=== PATIENT | male | born 1930 | race Caucasian/White ===

== ENCOUNTER 2019-01-01 18:42 | Inpatient (IN) | payer MEDICARE, MEDICAID ==
[~2019-01-01] VITALS: Ht 185.4 cm; Wt 68.5 kg
--- NOTE | 2019-01-01 19:27 | NUR ---
PT WAS BIB HIS SON AND DAUGHTER FOR INCREASED AGGITATION AND AGGRESSION TOWARDS THE CAREGIVER AT HOME. PT WAS DX WITH MILD DEMENTIA, BUT TODAY HE LOCKED THE CAREGIVER OUT AND WOULD NOT LET HER IN. PT'S FAMILY CAN NOT CARE FOR THE PT AND BROUGHT HIM IN FOR EVALUATION. 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 PT AMBULATED TO ER 11 WITH A SLOW STEADY GAIT. PT THEN AMBULATED TO THE BATHROOM TO GIVE A URINE SAMPLE. PT WAS PLACED ON THE MONITOR AND CONTINUOUS PULSE OX.
--- NOTE | 2019-01-01 19:29 | NUR ---
DR DANIELS IS AT THE BEDSIDE SPEAKING TO THE PT
--- NOTE | 2019-01-01 19:58 | NUR ---
BLOOD WAS DRAWN AND SENT TO LAB.
[2019-01-01] MEDS ORDERED: IV NS 0.9% 1,000 ML BAG IV ONE (20:00)
[2019-01-01 20:05] LABS: APPEARANCE,URINE Clear (CLEAR); BILIRUBIN,URINE SMALL (NEGATIVE); BLOOD, URINE Negative Ery/uL (NEGATIVE); COLOR,URINE DARK YELLOW (YELLOW); KETONES,URINE Trace (NEGATIVE); LEUKOCYTE ESTERASE ,URINE Negative (NEGATIVE); NITRITE, URINE Negative (NEGATIVE); PH,URINE 5.5 (5.0-8.0); PROTEIN,URINE Negative (NEGATIVE); UGLUCOSE Negative (NEGATIVE); UROBILINOGEN,URINE 0.2 EU/dL (0.2)
--- NOTE | 2019-01-01 20:15 | NUR ---
DR DANIELS IS AT THE BEDSIDE SPEAKING TO THE PT.
[2019-01-01 20:26] LABS: CALCIUM, SERUM 8.9 mg/dL (8.5-10.1); CARBON DIOXIDE 21 mmol/L (21-32); CHLORIDE 104 mmol/L (98-107); CREATININE 1.2 mg/dL (0.6-1.3); GLUCOSE 95 mg/dL (74-106); POTASSIUM 4.2 mmol/L (3.5-5.1); SODIUM SERUM 139 mmol/L (136-145); UREA NITROGEN, BLOOD 23 mg/dL (7-18)
[2019-01-01 20:27] LABS: BACTERIA,URINE None seen /HPF (None Seen); RBC,URINE 0-2 /HPF (0-2); SQUAMOUS EPITHELIAL CELL,UR Few /HPF (None Seen); WBC,URINE 0-2 /HPF (0-3)
--- NOTE | 2019-01-01 20:28 | NUR ---
PT TAKEN TO CT
[2019-01-01 20:32] LABS: ALANINE AMINOTRANSFERASE 22 U/L (12-78); ALBUMIN 4.3 g/dL (3.4-5.0); ALKALINE PHOSPHATASE 57 U/L (46-116); ASPARTATE AMINOTRANSFERASE 23 U/L (15-37); BILIRUBIN,DIRECT 0.2 mg/dL (0.0-0.2); BILIRUBIN,TOTAL 1.2 mg/dL (0.2-1.0); LIPASE 488 U/L (73-393); TOTAL PROTEIN, SERUM 7.4 g/dL (6.4-8.2)
--- NOTE | 2019-01-01 20:33 | NUR ---
GPS BED 213B GIVEN
--- NOTE | 2019-01-01 20:37 | NUR ---
PT RETURNED FROM CT.
[2019-01-01 20:42] LABS: BASOPHILS % (AUTO) 0.3 % (0.0-2.0); EOSINOPHILS % (AUTO) 0.9 % (0.0-6.0); HEMATOCRIT 41 % (39-51); HEMOGLOBIN 14.3 g/dL (13.5-17.5); LYMPHOCYTES # (AUTO) 1.8 /CMM (0.8-4.8); LYMPHOCYTES % (AUTO) 21.1 % (20.0-44.0); MEAN CORPUSCULAR HGB CONC 35 g/dl (31.0-36.0); MEAN CORPUSCULAR VOLUME 100 fL (80-96); MONOCYTES # (AUTO) 0.9 /CMM (0.1-1.30); MONOCYTES % (AUTO) 10.3 % (2.0-12.0); NEUTROPHILS # (AUTO) 5.8 /CMM (1.8-8.9); NEUTROPHILS % (AUTO) 67.4 % (43.0-81.0); PLATELET COUNT (AUTO) 183 /CMM (150-450); RED BLOOD CELL COUNT(AUTO) 4.05 MIL/uL (4.5-6.0); WHITE BLOOD COUNT (AUTO) 8.6 K/uL (4.3-11.0)
--- NOTE | 2019-01-01 21:12 | NUR ---
PT AMBULATED TO THE BATHROOM WITH ASSISTANCE.
--- NOTE | 2019-01-01 21:16 | NUR ---
REPORT GIVE TO KRISTIAN NUÑEZ, ON 3080 HOLD FOR GD
--- NOTE | 2019-01-01 21:24 | NUR ---
IV removed. Catheter intact and site benign. Pressure and 4x4 applied to site. No bleeding noted.
[2019-01-01 21:30] VITALS: BP 142/79
--- NOTE | 2019-01-01 21:30 | NUR ---
GPS ADMISSION NOTE, RECEIVED PATIENT FROM [facility]. PATIENT ADMITTED ON A 5150 HOLD FOR GD. PER HOLD PATIENT IS ALERT X 1 AND FILIPINO SPEAKING ONLY. PATIENT STATES, " I DON'T KNOW WHY I'M HERE, I'M PERFECTLY FINE ". PATIENT IS CONFUSED AND DISORIENTED. PATIENT SON JERALD AT BEDSIDE, ACCORDING TO JERALD PATIENT HAS BEEN EXHIBITING BIZARRE BEHAVIOR, IS PARANOID, AND DELUSIONAL. PATIENT HAS BEEN ACCUSING HIS CAREGIVER THAT SHE IS STEALING HIS MONEY. PATIENT HAS BEEN INCREASINGLY CONFUSED, CRYING , AND HAS MOOD SWINGS. PATIENT LIVES BY HIMSELF, HAS POOR INSIGHT, AND IMPAIRED JUDGMENT. PATIENT UNABLE TO MAKE VIABLE PLAN FOR SELF CARE AT THIS TIME. THE 5150 WAS REVIEWED AND THE DOCUMENTATION IN THE 5150 HOLD APPEARS TO REFLECT THE PRESENTATION OF THE PATIENT. UPON FACE TO FACE ASSESSMENT PATIENT IS NOTED TO BEING ANXIOUS, DISHEVELED, DISORGANIZED, CONFUSED, COOPERATIVE, AND NEEDS REDIRECTION. PATIENT IS CURRENTLY LYING IN BED AWAKE, HAS NO S/S OR COMPLAINTS OF PAIN. PATIENT IS DISPLAYING NO S/S OF APPARENT DISTRESS. PATIENT BREATHING IS UNLABORED WITH EQUAL RISE AND FALL OF THE CHEST. PATIENT IS ALERT AND ORIENTATED X 1 ON ROOM AIR. PATIENT ASSISTED WITH TURING AND REPOSITIONING Q2HR AND PRN FOR COMFORT AND CIRCULATION. PATIENT HAS NO NEEDS AT THIS TIME. PATIENT DENIES SUICIDE IDEATIONS AND HOMICIDAL IDEATIONS AT THIS TIME. PATIENT ADVISED OF HIS HOLD AND PATIENT RIGHTS BOOKLET GIVEN. PATIENT IS UNDER THE PSYCHIATRIC CARE OF DR. BARROS AND THE MEDICAL CARE OF DR ROMAN. PATIENT BELONGINGS WERE INVENTORIED AND CHECKED FOR CONTRABAND. ALL CONTRABAND REMOVED AND STORED IN PATIENT HALLWAY LOCKER. PATIENT ADVANCED DIRECTIVES PREFERENCE, IMMUNIZATIONS QUESTIONER, AND NECESSARY PAPERWORK COMPLETED. PATIENT SKIN ASSESSMENT DONE. PATIENT ORIENTATED TO ROOM, FLOOR, AND STAFF WITH ALL QUESTIONS ANSWERED. PATIENT EDUCATED ON THE USE OF THE CALL CONNOR. PATIENT BED SIDE RAILS ARE UP X 2 FOR SAFETY. PATIENT BED IS LOCKED, LOW AND I WILL CONTINUE TO MONITOR THIS PATIENT Q 15 MIN WITH THE HELP OF STAFF TO MAINTAIN SAFETY.
[2019-01-01] MEDS ORDERED: TAMS-12 PO (22:19)
[2019-01-01] MEDS ORDERED: ASPI81TA44 PO (22:20)
[2019-01-01] MEDS ORDERED: CITA20TA16 PO (22:21)
[2019-01-01] MEDS ORDERED: AMLO2.5T4 PO (22:23)
[2019-01-01] MEDS ORDERED: GABA-532 PO (22:24)
[2019-01-01] MEDS ORDERED: LEVO25TA7 PO (22:25)
[2019-01-01] MEDS ORDERED: DUTA0.5C PO (22:26)
[2019-01-01] MEDS ORDERED: CHOL100040 PO (22:27)
[2019-01-01] MEDS ORDERED: CYAN-51 PO (22:29)
[2019-01-01] MEDS ORDERED: CELE100C PO (22:29)
[2019-01-01] MEDS ORDERED: MAGNESIUM HYDROXIDE 30 ML UDC PO PRN (22:30)
[2019-01-01] MEDS ORDERED: MAG HYDROX/AL HYDROX/SIMETH 30 ML UDC PO PRN (22:30)
[2019-01-01] MEDS ORDERED: POTA20TA83 PO (22:30)
[2019-01-01] MEDS ORDERED: ROSU20TA2 PO (22:31)
[2019-01-01] MEDS ORDERED: MEMA10TA PO (22:32)
[2019-01-01] MEDS ORDERED: RANO10003 PO (22:35)
[2019-01-02 06:35] LABS: CREATININE 1.1 mg/dL (0.6-1.3)
[2019-01-02 06:52] LABS: CHOLESTEROL 137 mg/dL (<200); HDL CHOLESTEROL 73 mg/dL (40-60); LDL 60 mg/dL (0-99); TRIGLYCERIDES 47 mg/dL (30-150)
[2019-01-02 06:54] LABS: THYROID STIMULATING HORMONE 3.932 uIU/mL (0.358-3.74)
[2019-01-02 08:00] VITALS: BP 139/70
[2019-01-02] MEDS ORDERED: Medication Not On Formulary EA (Memantine Hcl (Namenda) 1 TAB) PO SCH (09:00)
[2019-01-02] MEDS: POTASSIUM CHLORIDE 20 MEQ TAB.PRT.SR PO SCH ×2 (09:06→17:46)
[2019-01-02] MEDS: LEVOTHYROXINE SODIUM 25 MCG TABLET PO SCH (09:06)
[2019-01-02] MEDS: CHOLECALCIFEROL 1,000 UNIT TABLET (VIT D3) PO SCH (09:06)
[2019-01-02] MEDS: MEMANTINE HCL 5 MG TABLET PO SCH ×2 (09:06→17:46)
[2019-01-02] MEDS: GABAPENTIN 100 MG CAPSULE PO SCH ×2 (09:06→17:46)
[2019-01-02] MEDS: TAMSULOSIN 0.4 MG CAP.SR.24H PO SCH (09:06)
[2019-01-02] MEDS: CYANOCOBALAMIN 500 MCG TABLET PO SCH (09:06)
[2019-01-02] MEDS: ASPIRIN EC 81 MG TABLET.DR PO SCH (09:06)
[2019-01-02] MEDS: ATORVASTATIN 40 MG TABLET PO SCH (09:06)
[2019-01-02] MEDS: DUTASTERIDE (0.5 MG) 0.5 MG CAPSULE PO SCH (09:07)
--- NOTE | 2019-01-02 12:50 | NUR ---
SW called the pts son, Carroll ([phone]), and obtained collateral information regarding the pts psychosocial assessment. SW and the pts son also discussed the pts treatment plan and initial discharge plan. Pts son wants the SW to refer the pt to the [facility] and the SW stated that she would also have a backup ready just in case.
--- NOTE | 2019-01-02 14:42 | NUR ---
Initial Discharge Plan: Pt currently resides at a senior apartment alone located at [address] [place] [address]; ([phone]). Per pt, he would like to return. Pt's son, Carroll ([phone]), stated that he would consider the [facility] as a placement option. SW will work with the pt and the MD regarding appropriate discharge planning. SW will form a safe and proper discharge.
[2019-01-02 16:06] VITALS: BP 123/69
[2019-01-02 20:29] VITALS: BP 107/50
--- NOTE | 2019-01-02 20:33 | NUR ---
GPS RN NOTE: SPOKE TO DR. BARROS REGARDING CELEXA 20MG AND INFORMED CONSENT OBTAINED, SIGNED AND WITNESSED BY THE CN, PATIENT REFUSED TO SIGN. ORDERED FAXED TO PHARMACY
[2019-01-02] MEDS: CITALOPRAM HYDROBROMIDE 20 MG TABLET PO SCH (22:04)
[2019-01-02] MEDS: TEMAZEPAM 7.5 MG CAPSULE PO PRN (22:05)
[2019-01-02] MEDS: AMLODIPINE BESYLATE 2.5 MG TABLET PO SCH (22:05)
[2019-01-03 08:00] VITALS: BP 143/70
[2019-01-03] MEDS: CHOLECALCIFEROL 1,000 UNIT TABLET (VIT D3) PO SCH (08:12)
[2019-01-03] MEDS: MEMANTINE HCL 5 MG TABLET PO SCH ×2 (08:12→16:23)
[2019-01-03] MEDS: CYANOCOBALAMIN 500 MCG TABLET PO SCH (08:12)
[2019-01-03] MEDS: ASPIRIN EC 81 MG TABLET.DR PO SCH (08:13)
[2019-01-03] MEDS: ATORVASTATIN 40 MG TABLET PO SCH (08:13)
[2019-01-03] MEDS: LEVOTHYROXINE SODIUM 25 MCG TABLET PO SCH (08:13)
[2019-01-03] MEDS: POTASSIUM CHLORIDE 20 MEQ TAB.PRT.SR PO SCH ×2 (08:14→16:23)
[2019-01-03] MEDS: TAMSULOSIN 0.4 MG CAP.SR.24H PO SCH (08:14)
[2019-01-03] MEDS: DUTASTERIDE (0.5 MG) 0.5 MG CAPSULE PO SCH (08:14)
[2019-01-03] MEDS: GABAPENTIN 100 MG CAPSULE PO SCH ×2 (08:15→16:23)
[2019-01-03] MEDS: clonazePAM 0.5 MG TABLET PO PRN (11:28)
--- NOTE | 2019-01-03 11:45 | NUR ---
RN NOTE: PATIENT IS VERY ANXIOUS, RESTLESS, WORRIED AND CONSTANTLY STATING THAT HE WANTS TO GO HOME OR SPEAK TO A DOCTOR. DUE TO BEHAVIOR, PRN KLONOPIN WAS GIVEN.
--- NOTE | 2019-01-03 12:01 | NUR ---
RN NOTE: PER SYSTEM TECHNOLOGIST, PATIENT IS ALERT X2, VERY FORGETFUL AND CONFUSED. PATIENT DENIES SI/HI AT THIS TIME.
--- NOTE | 2019-01-03 15:10 | NUR ---
GROUP NOTE: SW prompted pt to attend group discussing the topic of discharge planning, pt unable to participate in group due to cognitive impairment and language barrier.
--- NOTE | 2019-01-03 15:47 | NUR ---
SW called the pts son, Carroll ([phone]), and provided him with referrals for snf to [facility] and [facility]. Pts son stated that he would visit the facilities and inform the SW about his opinion.
[2019-01-03 16:00] VITALS: BP 110/58
[2019-01-03] MEDS: QUETIAPINE FUMARATE 25 MG TABLET PO SCH (16:22)
[2019-01-03 20:00] VITALS: BP 103/50
[2019-01-03] MEDS: CITALOPRAM HYDROBROMIDE 20 MG TABLET PO SCH (21:16)
[2019-01-03] MEDS: AMLODIPINE BESYLATE 2.5 MG TABLET PO SCH (21:17)
--- NOTE | 2019-01-04 07:44 | NUR ---
RN INIATAL NOTES PT AWAKE AMBULATING IN THE ROOM, VERBALLY RESPONSIVE AND DENIES PAIN. NO BEHAVIORAL CHANGES AT THIS TIME, SAFETY ENSURED
[2019-01-04 08:00] VITALS: BP 122/64
[2019-01-04] MEDS: ASPIRIN EC 81 MG TABLET.DR PO SCH (08:40)
[2019-01-04] MEDS: CYANOCOBALAMIN 500 MCG TABLET PO SCH (08:40)
[2019-01-04] MEDS: QUETIAPINE FUMARATE 25 MG TABLET PO SCH ×2 (08:40→16:17)
[2019-01-04] MEDS: GABAPENTIN 100 MG CAPSULE PO SCH ×2 (08:40→16:17)
[2019-01-04] MEDS: CHOLECALCIFEROL 1,000 UNIT TABLET (VIT D3) PO SCH (08:40)
[2019-01-04] MEDS: ATORVASTATIN 40 MG TABLET PO SCH (08:41)
[2019-01-04] MEDS: DUTASTERIDE (0.5 MG) 0.5 MG CAPSULE PO SCH (08:41)
[2019-01-04] MEDS: TAMSULOSIN 0.4 MG CAP.SR.24H PO SCH (08:41)
[2019-01-04] MEDS: LEVOTHYROXINE SODIUM 25 MCG TABLET PO SCH (08:41)
[2019-01-04] MEDS: MEMANTINE HCL 5 MG TABLET PO SCH ×2 (08:41→16:17)
[2019-01-04] MEDS: POTASSIUM CHLORIDE 20 MEQ TAB.PRT.SR PO SCH ×2 (08:41→16:17)
--- NOTE | 2019-01-04 08:54 | NUR ---
ELIAS faxed a referral to the [facility] with attention to Admissions to the fax number: [phone].
--- NOTE | 2019-01-04 08:54 | NUR ---
ELIAS sent a fax to [facility] with attention to [place] to the fax number: [phone].
--- NOTE | 2019-01-04 09:38 | NUR ---
Kylie from the [facility] called the SW and stated that the pt was not accepted because he is not appropriate.
--- NOTE | 2019-01-04 14:29 | NUR ---
GROUP NOTE: SW prompted pt to attend group discussing the topic of support systems, but pt unable to participate in group.
[2019-01-04 16:00] VITALS: BP 110/65
--- NOTE | 2019-01-04 16:02 | NUR ---
Dayanna ([phone]) from [facility] contacted the and informed her that the pt was accepted to their facility.
--- NOTE | 2019-01-04 16:03 | NUR ---
ELIAS faxed the pts history and physical to [facility] [employer] to the fax number: [phone].
[2019-01-04 20:19] VITALS: BP 132/71
[2019-01-04] MEDS: CITALOPRAM HYDROBROMIDE 20 MG TABLET PO SCH (22:28)
[2019-01-04] MEDS: AMLODIPINE BESYLATE 2.5 MG TABLET PO SCH (22:29)
[2019-01-04] MEDS: TEMAZEPAM 7.5 MG CAPSULE PO PRN (22:29)
[2019-01-05 08:00] VITALS: BP 124/67
[2019-01-05] MEDS: QUETIAPINE FUMARATE 25 MG TABLET PO SCH ×2 (08:49→16:38)
[2019-01-05] MEDS: TAMSULOSIN 0.4 MG CAP.SR.24H PO SCH (08:50)
[2019-01-05] MEDS: MEMANTINE HCL 5 MG TABLET PO SCH ×2 (08:50→16:38)
[2019-01-05] MEDS: ATORVASTATIN 40 MG TABLET PO SCH (08:50)
[2019-01-05] MEDS: CYANOCOBALAMIN 500 MCG TABLET PO SCH (08:50)
[2019-01-05] MEDS: LEVOTHYROXINE SODIUM 25 MCG TABLET PO SCH (08:50)
[2019-01-05] MEDS: GABAPENTIN 100 MG CAPSULE PO SCH ×2 (08:50→16:39)
[2019-01-05] MEDS: ASPIRIN EC 81 MG TABLET.DR PO SCH (08:50)
[2019-01-05] MEDS: CHOLECALCIFEROL 1,000 UNIT TABLET (VIT D3) PO SCH (08:50)
[2019-01-05] MEDS: POTASSIUM CHLORIDE 20 MEQ TAB.PRT.SR PO SCH ×2 (08:50→16:56)
[2019-01-05] MEDS: CELECOXIB 100 MG CAPSULE PO PRN (08:50)
[2019-01-05] MEDS: DUTASTERIDE (0.5 MG) 0.5 MG CAPSULE PO SCH (08:50)
[2019-01-05 16:00] VITALS: BP 110/67
--- NOTE | 2019-01-05 19:14 | NUR ---
Handoff to JOAQUIN Morgan. Krystian Rabaog RN
[2019-01-05 20:00] VITALS: BP 121/64
[2019-01-05] MEDS: CITALOPRAM HYDROBROMIDE 20 MG TABLET PO SCH (21:54)
[2019-01-05] MEDS: AMLODIPINE BESYLATE 2.5 MG TABLET PO SCH (21:54)
[2019-01-05] MEDS: TEMAZEPAM 7.5 MG CAPSULE PO PRN (21:54)
[2019-01-06 08:00] VITALS: BP 141/83
[2019-01-06] MEDS: LEVOTHYROXINE SODIUM 25 MCG TABLET PO SCH (08:39)
[2019-01-06] MEDS: MEMANTINE HCL 5 MG TABLET PO SCH ×2 (08:39→16:28)
[2019-01-06] MEDS: POTASSIUM CHLORIDE 20 MEQ TAB.PRT.SR PO SCH ×2 (08:39→16:28)
[2019-01-06] MEDS: TAMSULOSIN 0.4 MG CAP.SR.24H PO SCH (08:39)
[2019-01-06] MEDS: GABAPENTIN 100 MG CAPSULE PO SCH ×2 (08:39→16:28)
[2019-01-06] MEDS: QUETIAPINE FUMARATE 25 MG TABLET PO SCH ×2 (08:40→16:29)
[2019-01-06] MEDS: ATORVASTATIN 40 MG TABLET PO SCH (08:45)
[2019-01-06] MEDS: CHOLECALCIFEROL 1,000 UNIT TABLET (VIT D3) PO SCH (08:45)
[2019-01-06] MEDS: DUTASTERIDE (0.5 MG) 0.5 MG CAPSULE PO SCH (08:45)
[2019-01-06] MEDS: ASPIRIN EC 81 MG TABLET.DR PO SCH (08:45)
[2019-01-06] MEDS: CYANOCOBALAMIN 500 MCG TABLET PO SCH (08:45)
[2019-01-06] MEDS: CELECOXIB 100 MG CAPSULE PO PRN (08:46)
[2019-01-06] MEDS: clonazePAM 0.5 MG TABLET PO PRN ×2 (13:41→22:26)
--- NOTE | 2019-01-06 13:44 | NUR ---
patient c/o feeling of anxiety medicated with clonazepam 0.5
[2019-01-06 16:04] VITALS: BP 135/79
[2019-01-06 20:09] VITALS: BP 101/56
[2019-01-06] MEDS: CITALOPRAM HYDROBROMIDE 20 MG TABLET PO SCH (21:09)
[2019-01-06] MEDS: AMLODIPINE BESYLATE 2.5 MG TABLET PO SCH (21:10)
[2019-01-07] MEDS: ACETAMINOPHEN 325 MG TABLET PO PRN (06:51)
[2019-01-07 08:00] VITALS: BP 116/62
[2019-01-07] MEDS: GABAPENTIN 100 MG CAPSULE PO SCH ×2 (08:30→16:19)
[2019-01-07] MEDS: ATORVASTATIN 40 MG TABLET PO SCH (08:30)
[2019-01-07] MEDS: CHOLECALCIFEROL 1,000 UNIT TABLET (VIT D3) PO SCH (08:30)
[2019-01-07] MEDS: POTASSIUM CHLORIDE 20 MEQ TAB.PRT.SR PO SCH ×2 (08:30→16:19)
[2019-01-07] MEDS: MEMANTINE HCL 5 MG TABLET PO SCH ×2 (08:30→16:19)
[2019-01-07] MEDS: DUTASTERIDE (0.5 MG) 0.5 MG CAPSULE PO SCH (08:30)
[2019-01-07] MEDS: LEVOTHYROXINE SODIUM 25 MCG TABLET PO SCH (08:30)
[2019-01-07] MEDS: QUETIAPINE FUMARATE 25 MG TABLET PO SCH (08:30)
[2019-01-07] MEDS: TAMSULOSIN 0.4 MG CAP.SR.24H PO SCH (08:30)
[2019-01-07] MEDS: ASPIRIN EC 81 MG TABLET.DR PO SCH (08:30)
[2019-01-07] MEDS: CYANOCOBALAMIN 500 MCG TABLET PO SCH (08:43)
[2019-01-07] MEDS: CELECOXIB 100 MG CAPSULE PO PRN (10:51)
--- NOTE | 2019-01-07 10:52 | NUR ---
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 CELEBREX 100MG P.O GIVEN PRN ORDER. WILL CONT. MONITORING FOR SAFETY.
--- NOTE | 2019-01-07 11:35 | NUR ---
GPS/RN-NOTES PATIENT LAYING IN BED CALM,NO ACUTE DISTRESS NOTED.
--- NOTE | 2019-01-07 12:26 | NUR ---
ELIAS spoke with Pt�s son, Carroll ([phone]), regarding discharge plan for pt to [facility] on Monday01/09/19 but pt�s son would like to continue exploring other facilities. ELIAS will work with pt, his family, and MD regarding appropriate discharge planning. ELIAS will form a safe and proper discharge.
--- NOTE | 2019-01-07 15:52 | NUR ---
GROUP NOTE: SW prompted pt to attend group discussing the topic of personal strengths and coping skills, but pt unable to participate in group because pt wants to eat.
[2019-01-07 16:00] VITALS: BP 119/75
[2019-01-07 19:54] VITALS: BP 129/68
[2019-01-07] MEDS: OLANZAPINE 2.5 MG TABLET PO SCH (21:03)
[2019-01-07] MEDS: CITALOPRAM HYDROBROMIDE 20 MG TABLET PO SCH (21:06)
[2019-01-07] MEDS: TEMAZEPAM 7.5 MG CAPSULE PO PRN (21:06)
[2019-01-07] MEDS: AMLODIPINE BESYLATE 2.5 MG TABLET PO SCH (21:10)
--- NOTE | 2019-01-07 21:12 | NUR ---
APPROACHED THE NURSES STATION REQUESTING FOR TEMAZEPAM 7.5 MG CAP PO FOR SLEEP AND GIVEN.
[2019-01-08 08:00] VITALS: BP 129/65
[2019-01-08] MEDS: CYANOCOBALAMIN 500 MCG TABLET PO SCH (08:12)
[2019-01-08] MEDS: LEVOTHYROXINE SODIUM 25 MCG TABLET PO SCH (08:12)
[2019-01-08] MEDS: CHOLECALCIFEROL 1,000 UNIT TABLET (VIT D3) PO SCH (08:13)
[2019-01-08] MEDS: MEMANTINE HCL 5 MG TABLET PO SCH ×2 (08:13→16:24)
[2019-01-08] MEDS: ASPIRIN EC 81 MG TABLET.DR PO SCH (08:13)
[2019-01-08] MEDS: ATORVASTATIN 40 MG TABLET PO SCH (08:13)
[2019-01-08] MEDS: DUTASTERIDE (0.5 MG) 0.5 MG CAPSULE PO SCH (08:13)
[2019-01-08] MEDS: GABAPENTIN 100 MG CAPSULE PO SCH ×2 (08:13→16:25)
[2019-01-08] MEDS: POTASSIUM CHLORIDE 20 MEQ TAB.PRT.SR PO SCH ×2 (08:14→16:24)
[2019-01-08] MEDS: TAMSULOSIN 0.4 MG CAP.SR.24H PO SCH (08:14)
--- NOTE | 2019-01-08 11:15 | NUR ---
SW received a call from Pt�s son, Carroll ([phone]), regarding discharge plan, son informed SW that pts outside psychiatrist had spoken with Dr. Weller and they both agreed that pt sanna be better off being discharged to [address] [address] . Son stated that assisted living wants to speak with SW and asked SW to contact Anna Marie, revenue settlements administrator to discuss pts treatment.
--- NOTE | 2019-01-08 11:42 | NUR ---
ELIAS contacted Anna Marie administaroir at [facility] Address: [address] [place] [address] who stated she would be faxing the Physicains Report and nneded it completed before admisisons. Addendum: 01/08/19 at 1143 by HAIR GRIFFIN ERROR
--- NOTE | 2019-01-08 11:43 | NUR ---
ELIAS contacted Anna Marie, firm administrator at [facility] Address: [address] [place] [address] who stated she would be faxing the Physicians Report and needed it completed before admission.
--- NOTE | 2019-01-08 12:10 | NUR ---
ELIAS faxed Physician Report to Anna Marie, linux unix system administrator at [facility] Address: [address] [place] [id number] .
--- NOTE | 2019-01-08 15:30 | NUR ---
GROUP NOTE: SW prompted pt to attend group on 01/08/19 at 2:00pm discussing the topic of goal setting for while they are in the hospital and after discharge, but pt unable to participate in group because he was meeting with his patient advocate via an city superintendent.
[2019-01-08 16:00] VITALS: BP 124/62
[2019-01-08 20:18] VITALS: BP 102/56
[2019-01-08] MEDS: CITALOPRAM HYDROBROMIDE 20 MG TABLET PO SCH (21:37)
[2019-01-08] MEDS: OLANZAPINE 2.5 MG TABLET PO SCH (21:37)
[2019-01-08] MEDS: AMLODIPINE BESYLATE 2.5 MG TABLET PO SCH (21:38)
[2019-01-09] MEDS: LEVOTHYROXINE SODIUM 25 MCG TABLET PO SCH (07:56)
[2019-01-09 08:00] VITALS: BP 160/93
[2019-01-09] MEDS: ATORVASTATIN 40 MG TABLET PO SCH (08:00)
[2019-01-09] MEDS: ASPIRIN EC 81 MG TABLET.DR PO SCH (08:00)
[2019-01-09] MEDS: GABAPENTIN 100 MG CAPSULE PO SCH ×2 (08:00→16:03)
[2019-01-09] MEDS: TAMSULOSIN 0.4 MG CAP.SR.24H PO SCH (08:00)
[2019-01-09] MEDS: CYANOCOBALAMIN 500 MCG TABLET PO SCH (08:00)
[2019-01-09] MEDS: CHOLECALCIFEROL 1,000 UNIT TABLET (VIT D3) PO SCH (08:00)
[2019-01-09] MEDS: POTASSIUM CHLORIDE 20 MEQ TAB.PRT.SR PO SCH ×2 (08:01→16:03)
[2019-01-09] MEDS: MEMANTINE HCL 5 MG TABLET PO SCH ×2 (08:01→16:03)
[2019-01-09] MEDS: DUTASTERIDE (0.5 MG) 0.5 MG CAPSULE PO SCH (08:01)
--- NOTE | 2019-01-09 09:14 | NUR ---
SW contacted Astrid at [facility] Address: [address] [place] [phone] who confirmed that pt can be admitted this Monday01/11/19.
--- NOTE | 2019-01-09 09:15 | NUR ---
SW called the pts son, Carroll ([phone]) to inform him about pts discharge on monday but son did not answer and a voicemail was left. SW will attempt to contact son again.
--- NOTE | 2019-01-09 11:55 | NUR ---
SW received a phone message from Anna Marie, field administrator at [facility] Address, , stating that the family has requested that all communication regarding the discharge plan coordination go through her because pt's son, Carroll ([phone]) is a professor and has limited availability.
--- NOTE | 2019-01-09 13:26 | NUR ---
GROUP NOTE: SW prompted pt to attend group on 01/09/19 at 12:30pm discussing stress management techniques for while they are in the hospital and after discharge, but pt unable to participate in group due to cognitive impairment and language barrier.
[2019-01-09 16:46] VITALS: BP 100/60
[2019-01-09 20:00] VITALS: BP 102/57
[2019-01-09] MEDS: CITALOPRAM HYDROBROMIDE 20 MG TABLET PO SCH (21:03)
[2019-01-09] MEDS: OLANZAPINE 2.5 MG TABLET PO SCH (21:03)
[2019-01-09] MEDS: AMLODIPINE BESYLATE 2.5 MG TABLET PO SCH (21:04)
--- NOTE | 2019-01-10 06:00 | NUR ---
PATIENT ASLEEP, EASILY AROUSABLE. RESPIRATIONS EVEN. NO SIGNS OF PAIN NOTED. DUE MEDS GIVEN WITH NO ASE NOTED. NEEDS ATTENDED. SAFETY PRECAUTIONS AND COMFORT MEASURES IN PLACE. WILL GIVE REPORT TO DAY SHIFT FOR CONTINUITY OF CARE.
[2019-01-10 08:00] VITALS: BP 147/78
[2019-01-10] MEDS: LEVOTHYROXINE SODIUM 25 MCG TABLET PO SCH (09:11)
[2019-01-10] MEDS: CHOLECALCIFEROL 1,000 UNIT TABLET (VIT D3) PO SCH (09:11)
[2019-01-10] MEDS: ASPIRIN EC 81 MG TABLET.DR PO SCH (09:12)
[2019-01-10] MEDS: CYANOCOBALAMIN 500 MCG TABLET PO SCH (09:12)
[2019-01-10] MEDS: DUTASTERIDE (0.5 MG) 0.5 MG CAPSULE PO SCH (09:12)
[2019-01-10] MEDS: CELECOXIB 100 MG CAPSULE PO PRN (09:12)
[2019-01-10] MEDS: GABAPENTIN 100 MG CAPSULE PO SCH ×2 (09:12→17:34)
[2019-01-10] MEDS: MEMANTINE HCL 5 MG TABLET PO SCH ×2 (09:12→17:34)
[2019-01-10] MEDS: POTASSIUM CHLORIDE 20 MEQ TAB.PRT.SR PO SCH ×2 (09:12→17:34)
[2019-01-10] MEDS: ATORVASTATIN 40 MG TABLET PO SCH (09:14)
[2019-01-10] MEDS: TAMSULOSIN 0.4 MG CAP.SR.24H PO SCH (09:14)
[2019-01-10 16:00] VITALS: BP_SYST 127; BP_SYST 144; BP_DIAS 71; BP_DIAS 83
[2019-01-10 20:14] VITALS: BP 120/67
[2019-01-10] MEDS: AMLODIPINE BESYLATE 2.5 MG TABLET PO SCH (21:59)
[2019-01-10] MEDS: CITALOPRAM HYDROBROMIDE 20 MG TABLET PO SCH (21:59)
[2019-01-10] MEDS: OLANZAPINE 2.5 MG TABLET PO SCH (21:59)
[2019-01-10] MEDS: TEMAZEPAM 7.5 MG CAPSULE PO PRN (22:00)
[2019-01-11 08:00] VITALS: BP 131/69
[2019-01-11] MEDS: MEMANTINE HCL 5 MG TABLET PO SCH (08:24)
[2019-01-11] MEDS: CYANOCOBALAMIN 500 MCG TABLET PO SCH (08:25)
[2019-01-11] MEDS: ATORVASTATIN 40 MG TABLET PO SCH (08:25)
[2019-01-11] MEDS: POTASSIUM CHLORIDE 20 MEQ TAB.PRT.SR PO SCH (08:25)
[2019-01-11] MEDS: ASPIRIN EC 81 MG TABLET.DR PO SCH (08:25)
[2019-01-11] MEDS: LEVOTHYROXINE SODIUM 25 MCG TABLET PO SCH (08:25)
[2019-01-11] MEDS: DUTASTERIDE (0.5 MG) 0.5 MG CAPSULE PO SCH (08:25)
[2019-01-11] MEDS: TAMSULOSIN 0.4 MG CAP.SR.24H PO SCH (08:25)
[2019-01-11] MEDS: CHOLECALCIFEROL 1,000 UNIT TABLET (VIT D3) PO SCH (08:25)
[2019-01-11] MEDS: GABAPENTIN 100 MG CAPSULE PO SCH (08:25)
--- NOTE | 2019-01-11 08:58 | NUR ---
ELIAS called Anna Marie, collection administrator at [facility] Address and stated that the pt is being discharged today. Anna Marie stated that the hospital would have to arrange the transportation because no one is available from their facility.
--- NOTE | 2019-01-11 09:18 | NUR ---
ELIAS called Anna Marie, senior contracts administrator at [facility] and informed her that the hospital can arrange transportation for the pt through [employer] with private pay for the family. ELIAS stated that she is aware that the SW cannot contact the family and would have to discuss the pts discharge with the facility. The SW stated that she would like the family to be informed about the cost of the transportation which is estimated to be $107. Anna Marie stated that she would contact the family and call the SW back.
--- NOTE | 2019-01-11 09:27 | NUR ---
Anna Marie, wide area network systems administrator at [facility] and she stated that the family will arrive at 1pm to pick the pt up and transport him to the Assisted Living/Board and Care
[2019-01-11] MEDS: ACETAMINOPHEN 325 MG TABLET PO PRN (10:00)
--- NOTE | 2019-01-11 10:45 | NUR ---
DR. MARTELL COVERING FOR DR. BARROS GAVE AN ORDER TO D/C HOLD AND D/[facility] TO [facility] AND TO FOLLOW UP WITH PSYCH AND MEDICAL DOCTORS. PT. WITHOUT DISTRESS, DENIES SUICIDAL AND HOMICIDAL. WAYLON PICHARDO (DEPUTY SHERIFF BUILDING GUARD) MADE AWARE OF THE DISCHARGE AND PROVIDED A PRESCRIPTIONS AND SHE EXAMINED PT. REGARDING BREASTS PAIN AND SAID OK FOR DISCHARGE. BELONGINGS READY AND DISCHARGE PAPERS READY. Addendum: 01/11/19 at 1133 by JESSICA MONTALVO RN PT. SIGNED THE DISCHARGE PAPERS.
--- NOTE | 2019-01-11 13:15 | NUR ---
PT. LEFT THE UNIT WITH BELONGINGS AND PICKED BY SON JERALD WYMAN AND THE . LEFT WITHOUT DISTRESS, AMBULATORY WITH WALKER, ON STABLE CONDITION AND ESCORTED BY STAFF TO THE LOBBY. SON INSTRUCTED ON MEDS TO CONTINUE AT HOME AND VERBALIZES UNDERSTANDING AND ADVISED TO MAKE A FOLLOW UP WITH PSYCH AND MEDICAL DOCTORS AND AGREED. V/S TAKEN: BP 122/63, AL 77, RR 18, OXYGEN SAT 97% AND TEMP 97.7.
--- NOTE | 2019-01-11 15:32 | NUR ---
Discharge Note: Pt was discharged to [facility] located at [address] [place] [address] . Pt was picked up by his son, Carroll ([phone]), around 1pm. Upon discharge, the pt appeared to be in a euthymic mood and presented with a distressed affect. Pt endorsed somatic complaints on his chest. Pt denied both suicidal and homicidal ideation as well as auditory and visual hallucinations. Pt will be under the care of his psychiatrist, Dr. Jaspal Laguna, located at [address] [place] [address]; phone: , and a fax of records were sent to: [phone]. Pt will also be under the care of his chip loft worker, Dr. Zack Contreras, located at [address] [place] [address] [address], [place] [address]; .
== END 2019-01-11 13:15 | disposition home or self-care (01) | DRG 885 ==
LOC: ER 18:48 → GPS 21:12
PROVIDERS: ADMIT Psychiatry & Neurology Psychiatry; ATTEND Internal Medicine
DX: F33.2 Major depressive disorder, recurrent severe without psychotic features (principal); N17.0 Acute kidney failure with tubular necrosis; K85.90 Acute pancreatitis without necrosis or infection, unspecified; F23 Brief psychotic disorder; R45.851 Suicidal ideations; F03.90 Unspecified dementia, unspecified severity, without behavioral disturbance, psychotic disturbance, mood disturbance, and anxiety; E78.5 Hyperlipidemia, unspecified; E03.9 Hypothyroidism, unspecified; I10 Essential (primary) hypertension; I25.10 Atherosclerotic heart disease of native coronary artery without angina pectoris; N40.0 Benign prostatic hyperplasia without lower urinary tract symptoms; I25.2 Old myocardial infarction; G62.9 Polyneuropathy, unspecified; G89.29 Other chronic pain; M54.9 Dorsalgia, unspecified; F41.9 Anxiety disorder, unspecified
CPT/HCPCS: 36415; 70450-TC; 71045-TC; 80048-TC; 80061-TC; 80076-TC; 81000-TC; 82565-TC; 83690-TC; 84439-TC; 84443-TC; 84484-TC; 85025-TC; 87081-TC; 87086-TC; 97116-TC; 97530-TC; J7030